=== PATIENT | male | born 1945 | race Caucasian/White ===

== ENCOUNTER 2024-10-09 02:58 | Inpatient (IN) | payer OTHER ==
[2024-10-09] MEDS ORDERED: Promethazine HCl 25 MG/ML VIAL IM PRN (05:16)
[2024-10-09] MEDS ORDERED: Ondansetron PF 4 MG/2 ML Vial IVP PRN (05:16)
[2024-10-09] MEDS ORDERED: Ipratropium/Albuterol 3 ML NEB NEB PRN (05:16)
[2024-10-09 05:32] VITALS: BMI 19.1
[2024-10-09] MEDS: Sodium Chloride 0.9% 1,000 ML IV SCH ×2 (06:10→16:37)
[2024-10-09] MEDS: Morphine 4 MG/ML VIAL SLOW IVP PRN (06:29)
[2024-10-09] MEDS: fentaNYL 50 mcg/mL 1 mL Vial SLOW IVP SCH (06:32)
[2024-10-09] MEDS: Morphine 2 MG/ML VIAL SLOW IVP PRN (09:19)
[2024-10-09 09:25] LABS: #Basophils 0.05 10x3/uL (0.0-0.2); #Eosinophils Less than 0.03 10x3/uL (0.0-0.7); %Basophils 0.4 % (0.0-1.0); %Eosinophils 0.2 % (0.0-10.0); %Lymphocytes 5.6 % (21.0-51.0); %Monocytes 16.9 % (0.0-10.0); %Neutrophils 76.4 % (42.0-75.0); Hematocrit 37.5 % (42.0-52.0); Hemoglobin 12.2 g/dL (14.0-18.0); Mean Corpuscular HGB CONC 32.5 g/dL (32.0-36.0); Mean Corpuscular Hemoglobin 27.8 pg (27.0-31.0); Mean Corpuscular Volume 85.4 fL (78.0-98.0); Mean Platelet Volume 8.3 fL (7.4-10.4); Platelet Count 324 10x3/uL (130-400); Red Blood Cell (RBC) Count 4.39 mill/uL (4.70-6.10)
[2024-10-09 09:40] LABS: INR-International Normal Ratio 0.9; Prothrombin Time 12.4 sec (12.0-14.7)
[2024-10-09 09:41] LABS: PTT 32.6 sec (22.9-36.1)
[2024-10-09 09:50] LABS: ALT (SGPT) 14 U/L (8-55); AST (SGOT) 21 U/L (5-34); Albumin 3.3 g/dL (3.4-4.8); Alkaline Phosphatase 123 U/L (40-110); Anion Gap 14 mmol/L (10-20); BUN (Urea Nitrogen) 21 mg/dL (8.4-25.7); Bilirubin, Direct 0.3 mg/dL (0.1-0.3); Bilirubin, Total 0.7 mg/dL (0.2-1.2); Calc. Creatinine Clearance 40 mL/min (70-130); Calcium 8.8 mg/dL (7.8-10.44); Carbon Dioxide 23 mmol/L (23-31); Chloride 96 mmol/L (98-107); Estimated GFR 68; Globulin 3.8 g/dL (2.4-3.5); Glucose 109 mg/dL (83-110); Potassium 4.8 mmol/L (3.5-5.1); Protein, Total 7.1 g/dL (5.8-8.1); Sodium 128 mmol/L (136-145)
[2024-10-09 11:51] LABS: Actual Bicarbonate (HCO3v) 26.8 mEq/L (22-28); Base Excess 1.1 mEq/L (-2.0 to +3.0); Calcium, Ionized (venous) 1.08 mmol/L (1.16-1.32); Chloride (VBG) 96 mmol/L (98-106); Hematocrit-VBG 37 % (42.0-52.0); Hemoglobin (Hb) 12.7 g/dL (12.6-17.4); Potassium (VBG) 4.71 mmol/L (3.70-5.30); Sodium 131 mmol/L (133-146); pH (venous) 7.377 (7.32-7.43)
[2024-10-09 12:21] LABS: Lactic Acid 1.04 mmol/L (0.5-2.2)
[2024-10-09] MEDS ORDERED: Calcium Chloride 13.6 MEQ in Sodium Chloride 0.9% 100 ML IVPB SCH (13:00)
[2024-10-09 14:19] LABS: Bacteria/HPF None Seen HPF (None Seen); Bilirubin Negative (Negative); Blood, Urine 1+ (Negative); CAUTI Indications for Culture Alt mental st,lethar; Clarity Clear (Clear); Glucose, Urine (Dipstick) Normal (Negative); Ketone, Urine 10 mg/dL (Negative); Leukocyte Negative Leu/uL (Negative); Nitrite Negative (Negative); Protein, Urine (Dipstick) 20 mg/dL (Neg-Trace); Squamous Epithelial 0-3 HPF (0-3); Urobilinogen Normal mg/dL (Less than 2); WBC/HPF 0-3 HPF (0-3); pH, Urine 5.5 (5.0-9.0)
[2024-10-09 14:21] LABS: Specific Gravity, Urine 1.058 (1.002-1.036)
[2024-10-09 14:22] LABS: Urine Culture Reflex No No
[2024-10-09 14:35] LABS: Anion Gap 18 mmol/L (10-20); BUN (Urea Nitrogen) 20 mg/dL (8.4-25.7); Calc. Creatinine Clearance 46 mL/min (70-130); Calcium 8.6 mg/dL (7.8-10.44); Carbon Dioxide 17 mmol/L (23-31); Chloride 99 mmol/L (98-107); Estimated GFR 81; Glucose 78 mg/dL (83-110); Potassium 4.6 mmol/L (3.5-5.1); Sodium 129 mmol/L (136-145)
[2024-10-09] MEDS ORDERED: Sterile Water 10 ML VIAL FS PRN (15:00)
[2024-10-09] MEDS: FLU (Fluad Triv) TS24-25 (65UP)/MF59C/PF 45 MCG/0.5 ML Syringe IM ONE (15:11)
[2024-10-09] MEDS: Azithromycin 500 MG in Sodium Chloride 0.9% 250 ML 250 ML IVPB SCH (15:44)
[2024-10-09] MEDS: Morphine 2 MG/ML VIAL SLOW IVP SCH (15:48)
[2024-10-09] MEDS: cefTRIAXone\\ROCEPHIN 1 GM in Sodium Chloride 0.9% 100 ML IVPB SCH (15:58)
[2024-10-09] MEDS: OLANZapine 10 MG VIAL IM SCH (16:31)
[2024-10-10 04:56] LABS: #Basophils 0.05 10x3/uL (0.0-0.2); #Eosinophils Less than 0.03 10x3/uL (0.0-0.7); %Basophils 0.4 % (0.0-1.0); %Eosinophils 0.1 % (0.0-10.0); %Lymphocytes 6.3 % (21.0-51.0); %Monocytes 19.9 % (0.0-10.0); %Neutrophils 72.9 % (42.0-75.0); Hematocrit 36.6 % (42.0-52.0); Hemoglobin 11.8 g/dL (14.0-18.0); Mean Corpuscular HGB CONC 32.2 g/dL (32.0-36.0); Mean Corpuscular Hemoglobin 27.8 pg (27.0-31.0); Mean Corpuscular Volume 86.1 fL (78.0-98.0); Mean Platelet Volume 8.3 fL (7.4-10.4); Platelet Count 296 10x3/uL (130-400); Red Blood Cell (RBC) Count 4.25 mill/uL (4.70-6.10)
[2024-10-10 05:15] LABS: Anion Gap 17 mmol/L (10-20); BUN (Urea Nitrogen) 13 mg/dL (8.4-25.7); Calc. Creatinine Clearance 57 mL/min (70-130); Calcium 8.6 mg/dL (7.8-10.44); Carbon Dioxide 19 mmol/L (23-31); Chloride 93 mmol/L (98-107); Estimated GFR 91; Glucose 82 mg/dL (83-110); Magnesium 1.9 mg/dL (1.6-2.6); Phosphorus 2.9 mg/dL (2.3-4.7); Potassium 4.4 mmol/L (3.5-5.1); Sodium 125 mmol/L (136-145)
[2024-10-10] MEDS ORDERED: Acetaminophen 325 MG TAB PO PRN (05:26)
[2024-10-10] MEDS: Albumin 25% 25 GM (100 mL) BOT IVPB SCH (13:49)
[2024-10-10 16:56] VITALS: BMI 19.1
[2024-10-10 19:43] LABS: Potassium 3.7 mmol/L (3.5-5.1); Sodium 125 mmol/L (136-145)
[2024-10-11] MEDS ORDERED: Iopamidol-370 76% 500 ML MDV (1 ML CHARGE) ONE (08:46)
[2024-10-11 09:21] LABS: #Basophils 0.03 10x3/uL (0.0-0.2); #Eosinophils Less than 0.03 10x3/uL (0.0-0.7); %Basophils 0.2 % (0.0-1.0); %Monocytes 11.2 % (0.0-10.0); Hematocrit 36.3 % (42.0-52.0); Hemoglobin 12.2 g/dL (14.0-18.0); Mean Corpuscular HGB CONC 33.6 g/dL (32.0-36.0); Mean Corpuscular Hemoglobin 27.7 pg (27.0-31.0); Mean Corpuscular Volume 82.3 fL (78.0-98.0); Mean Platelet Volume 8.7 fL (7.4-10.4); Platelet Count 325 10x3/uL (130-400); RBC Distribution Width 16.3 % (11.5-14.5); Red Blood Cell (RBC) Count 4.41 mill/uL (4.70-6.10)
[2024-10-11 09:42] LABS: Anion Gap 22 mmol/L (10-20); BUN (Urea Nitrogen) 10 mg/dL (8.4-25.7); Calc. Creatinine Clearance 60 mL/min (70-130); Calcium 9.3 mg/dL (7.8-10.44); Carbon Dioxide 15 mmol/L (23-31); Chloride 88 mmol/L (98-107); Estimated GFR 93; Glucose 95 mg/dL (83-110); Potassium 3.4 mmol/L (3.5-5.1); Sodium 122 mmol/L (136-145)
[2024-10-11] MEDS: Tolvaptan 15 MG TAB PO SCH (12:33)
[2024-10-11] MEDS: Acetaminophen 650 MG Suppository PR PRN (12:57)
[2024-10-11 16:22] LABS: Bilirubin Negative (Negative); Blood, Urine 3+ (Negative); CAUTI Indications for Culture Alt mental st,lethar; Clarity Clear (Clear); Glucose, Urine (Dipstick) Normal (Negative); Ketone, Urine 100 mg/dL (Negative); Leukocyte 75 Leu/uL (Negative); Nitrite Negative (Negative); Protein, Urine (Dipstick) 100 mg/dL (Neg-Trace); RBC/HPF 0-3 HPF (0-3); Squamous Epithelial 0-3 HPF (0-3)
[2024-10-11 16:23] LABS: Bacteria/HPF 1+ HPF (None Seen)
[2024-10-11 16:24] LABS: Urine Culture Reflex No No
[2024-10-11] MEDS: metroNIDAZOLE 500 MG in Premix 1 BAG IVPB SCH (16:57)
[2024-10-11 18:39] LABS: Anion Gap 19 mmol/L (10-20); BUN (Urea Nitrogen) 10 mg/dL (8.4-25.7); Calc. Creatinine Clearance 56 mL/min (70-130); Calcium 8.7 mg/dL (7.8-10.44); Carbon Dioxide 11 mmol/L (23-31); Chloride 92 mmol/L (98-107); Estimated GFR 91; Glucose 88 mg/dL (83-110); Sodium 118 mmol/L (136-145)
[2024-10-11] MEDS: Sodium Bicarbonate 150 MEQ in Dextrose 5% in Water 1,000 ML IV SCH (20:52)
[2024-10-11] MEDS ORDERED: Vancomycin 1 GM in Premix 1 BAG IVPB SCH (21:00)
[2024-10-11] MEDS: Vancomycin HCl 750 MG in Sodium Chloride 0.9% 250 ML 250 ML IVPB SCH (21:07)
[2024-10-11] MEDS: Cefepime 1 GM in Sodium Chloride 0.9% 100 ML IVPB SCH (21:13)
[2024-10-11 21:26] LABS: Anion Gap 19 mmol/L (10-20); BUN (Urea Nitrogen) 12 mg/dL (8.4-25.7); Calc. Creatinine Clearance 58 mL/min (70-130); Calcium 8.7 mg/dL (7.8-10.44); Carbon Dioxide 14 mmol/L (23-31); Chloride 91 mmol/L (98-107); Estimated GFR 91; Glucose 90 mg/dL (83-110); Potassium 4.1 mmol/L (3.5-5.1); Sodium 120 mmol/L (136-145)
[2024-10-11] MEDS: Vancomycin HCl 750 MG VIAL ONE (22:26)
[2024-10-12] MEDS: Labetalol HCl 100 MG/20 ML VIAL SLOW IVP PRN (00:07)
[2024-10-12 03:58] LABS: #Basophils Less than 0.03 10x3/uL (0.0-0.2); #Eosinophils Less than 0.03 10x3/uL (0.0-0.7); %Basophils 0.2 % (0.0-1.0); %Eosinophils 0.1 % (0.0-10.0); %Lymphocytes 3.2 % (21.0-51.0); %Monocytes 10.4 % (0.0-10.0); %Neutrophils 85.7 % (42.0-75.0); Hematocrit 36.6 % (42.0-52.0); Hemoglobin 12.5 g/dL (14.0-18.0); Mean Corpuscular HGB CONC 34.2 g/dL (32.0-36.0); Mean Corpuscular Hemoglobin 27.5 pg (27.0-31.0); Mean Corpuscular Volume 80.6 fL (78.0-98.0); Mean Platelet Volume 8.3 fL (7.4-10.4); Platelet Count 306 10x3/uL (130-400); RBC Distribution Width 16.1 % (11.5-14.5); Red Blood Cell (RBC) Count 4.54 mill/uL (4.70-6.10)
[2024-10-12 04:20] LABS: Anion Gap 16 mmol/L (10-20); BUN (Urea Nitrogen) 12 mg/dL (8.4-25.7); Calc. Creatinine Clearance 59 mL/min (70-130); Calcium 8.6 mg/dL (7.8-10.44); Carbon Dioxide 19 mmol/L (23-31); Chloride 90 mmol/L (98-107); Estimated GFR 92; Glucose 114 mg/dL (83-110); Potassium 3.1 mmol/L (3.5-5.1); Sodium 122 mmol/L (136-145)
[2024-10-12 05:21] LABS: Vancomycin, Random 7.4 ug/mL (See Comment)
[2024-10-12] MEDS: Potassium Chloride 20 MEQ (100 mL) BAG IVPB SCH (08:42)
[2024-10-12] MEDS: Pantoprazole 40 MG VIAL IVP SCH (08:43)
[2024-10-12] MEDS: Metoprolol Tartrate 5 MG (5 mL) VIAL IVP SCH (08:43)
[2024-10-12] MEDS: Sodium Bicarbonate 150 MEQ in Dextrose 5% in Water 1,000 ML IV SCH (09:38)
[2024-10-12 09:41] LABS: Anion Gap 15 mmol/L (10-20); BUN (Urea Nitrogen) 12 mg/dL (8.4-25.7); Calc. Creatinine Clearance 56 mL/min (70-130); Calcium 8.8 mg/dL (7.8-10.44); Carbon Dioxide 24 mmol/L (23-31); Chloride 88 mmol/L (98-107); Estimated GFR 90; Glucose 109 mg/dL (83-110); Potassium 2.9 mmol/L (3.5-5.1); Sodium 124 mmol/L (136-145)
[2024-10-12] MEDS: Sodium Chloride 0.9% 1,000 ML IV SCH (11:29)
[2024-10-12 14:27] LABS: HIV (1/2) Antibody/Antigen NONREACTIVE (NonReactive); HIV 1/2 INDEX 0.04 S/CO (<1.00)
[2024-10-12] MEDS: Labetalol HCl 100 MG/20 ML VIAL SLOW IVP SCH (16:07)
[2024-10-13 00:55] LABS: #Basophils 0.03 10x3/uL (0.0-0.2); #Eosinophils Less than 0.03 10x3/uL (0.0-0.7); %Basophils 0.2 % (0.0-1.0); %Eosinophils 0.1 % (0.0-10.0); %Lymphocytes 2.4 % (21.0-51.0); %Monocytes 11.4 % (0.0-10.0); %Neutrophils 85.1 % (42.0-75.0); Hematocrit 36.5 % (42.0-52.0); Hemoglobin 12.3 g/dL (14.0-18.0); Mean Corpuscular HGB CONC 33.7 g/dL (32.0-36.0); Mean Corpuscular Hemoglobin 27.5 pg (27.0-31.0); Mean Corpuscular Volume 81.7 fL (78.0-98.0); Mean Platelet Volume 8.4 fL (7.4-10.4); Platelet Count 431 10x3/uL (130-400); RBC Distribution Width 15.8 % (11.5-14.5); Red Blood Cell (RBC) Count 4.47 mill/uL (4.70-6.10)
[2024-10-13 01:16] LABS: Anion Gap 18 mmol/L (10-20); BUN (Urea Nitrogen) 10 mg/dL (8.4-25.7); Calc. Creatinine Clearance 61 mL/min (70-130); Carbon Dioxide 17 mmol/L (23-31); Chloride 91 mmol/L (98-107); Sodium 122 mmol/L (136-145)
[2024-10-13 01:17] LABS: Calcium 8.6 mg/dL (7.8-10.44); Estimated GFR 93; Glucose 133 mg/dL (83-110)
[2024-10-13] MEDS: Melatonin 3 MG TAB PO SCH (04:22)
[2024-10-13 04:58] LABS: #Basophils Less than 0.03 10x3/uL (0.0-0.2); #Eosinophils Less than 0.03 10x3/uL (0.0-0.7); %Basophils 0.1 % (0.0-1.0); %Monocytes 11.4 % (0.0-10.0); %Neutrophils 85.7 % (42.0-75.0); Hematocrit 37.1 % (42.0-52.0); Hemoglobin 12.7 g/dL (14.0-18.0); Mean Corpuscular HGB CONC 34.2 g/dL (32.0-36.0); Mean Corpuscular Hemoglobin 27.9 pg (27.0-31.0); Mean Corpuscular Volume 81.4 fL (78.0-98.0); Mean Platelet Volume 8.9 fL (7.4-10.4); Platelet Count 448 10x3/uL (130-400); RBC Distribution Width 15.9 % (11.5-14.5); Red Blood Cell (RBC) Count 4.56 mill/uL (4.70-6.10)
[2024-10-13 05:09] LABS: Anion Gap 20 mmol/L (10-20); BUN (Urea Nitrogen) 12 mg/dL (8.4-25.7); Calc. Creatinine Clearance 58 mL/min (70-130); Calcium 8.7 mg/dL (7.8-10.44); Carbon Dioxide 15 mmol/L (23-31); Chloride 92 mmol/L (98-107); Estimated GFR 91; Glucose 123 mg/dL (83-110); Potassium 4.1 mmol/L (3.5-5.1); Sodium 123 mmol/L (136-145)
[2024-10-13] MEDS: diphenhydrAMINE 50 MG/ML VIAL IVP SCH (06:05)
[2024-10-13] MEDS: Sodium Bicarbonate 150 MEQ in Dextrose 5% in Water 1,000 ML IV SCH (13:05)
[2024-10-13] MEDS: Vancomycin 1 GM in Premix 1 BAG IVPB SCH (13:59)
[2024-10-14] MEDS ORDERED: metroNIDAZOLE 500 MG (100 mL) BAG ONE ×4 (05:11→22:00)
[2024-10-14] MEDS ORDERED: Pantoprazole 40 MG VIAL ONE ×2 (08:11→09:00)
[2024-10-14] MEDS ORDERED: Potassium Chloride 20 MEQ (100 mL) BAG ONE ×4 (11:00→13:11)
[2024-10-14] MEDS ORDERED: Morphine 2 MG/ML VIAL ONE (21:55)
[2024-10-15] MEDS ORDERED: Morphine 2 MG/ML VIAL ONE ×3 (00:30→14:30)
[2024-10-15] MEDS ORDERED: Pantoprazole DR 40 MG TAB ONE (08:05)
[2024-10-15] MEDS ORDERED: Pantoprazole 40 MG VIAL ONE (08:05)
[2024-10-15] MEDS ORDERED: Cefepime 2 GM VIAL ONE (08:05)
[2024-10-16 04:49] LABS: #Basophils 0.03 10x3/uL (0.0-0.2); #Eosinophils Less than 0.03 10x3/uL (0.0-0.7); %Basophils 0.2 % (0.0-1.0); %Eosinophils 0.1 % (0.0-10.0); %Lymphocytes 1.8 % (21.0-51.0); %Monocytes 11.2 % (0.0-10.0); Hematocrit 39.4 % (42.0-52.0); Hemoglobin 12.6 g/dL (14.0-18.0); Mean Corpuscular Hemoglobin 27.7 pg (27.0-31.0); Mean Corpuscular Volume 86.6 fL (78.0-98.0); Mean Platelet Volume 8.7 fL (7.4-10.4); Platelet Count 347 10x3/uL (130-400); RBC Distribution Width 16.7 % (11.5-14.5); Red Blood Cell (RBC) Count 4.55 mill/uL (4.70-6.10)
[2024-10-16 08:57] LABS: Anion Gap 18 mmol/L (10-20); BUN (Urea Nitrogen) 18 mg/dL (8.4-25.7); Calc. Creatinine Clearance 57 mL/min (70-130); Calcium 8.6 mg/dL (7.8-10.44); Carbon Dioxide 19 mmol/L (23-31); Chloride 99 mmol/L (98-107); Estimated GFR 91; Glucose 79 mg/dL (83-110); Sodium 132 mmol/L (136-145)
[2024-10-17 04:36] LABS: #Basophils 0.06 10x3/uL (0.0-0.2); #Eosinophils Less than 0.03 10x3/uL (0.0-0.7); %Basophils 0.4 % (0.0-1.0); %Eosinophils 0.1 % (0.0-10.0); %Lymphocytes 1.6 % (21.0-51.0); %Monocytes 11.8 % (0.0-10.0); Hematocrit 40.9 % (42.0-52.0); Hemoglobin 12.9 g/dL (14.0-18.0); Mean Corpuscular HGB CONC 31.5 g/dL (32.0-36.0); Mean Corpuscular Hemoglobin 27.5 pg (27.0-31.0); Mean Corpuscular Volume 87.2 fL (78.0-98.0); Mean Platelet Volume 8.9 fL (7.4-10.4); Platelet Count 353 10x3/uL (130-400); RBC Distribution Width 17.2 % (11.5-14.5); Red Blood Cell (RBC) Count 4.69 mill/uL (4.70-6.10)
[2024-10-17 04:51] LABS: Anion Gap 18 mmol/L (10-20); BUN (Urea Nitrogen) 19 mg/dL (8.4-25.7); Calc. Creatinine Clearance 56 mL/min (70-130); Calcium 8.6 mg/dL (7.8-10.44); Carbon Dioxide 19 mmol/L (23-31); Chloride 102 mmol/L (98-107); Estimated GFR 91; Glucose 104 mg/dL (83-110); Sodium 135 mmol/L (136-145)
[2024-10-18 06:16] LABS: Anion Gap 15 mmol/L (10-20); BUN (Urea Nitrogen) 22 mg/dL (8.4-25.7); Calc. Creatinine Clearance 58 mL/min (70-130); Calcium 8.7 mg/dL (7.8-10.44); Carbon Dioxide 24 mmol/L (23-31); Chloride 104 mmol/L (98-107); Estimated GFR 91; Glucose 115 mg/dL (83-110); Sodium 139 mmol/L (136-145)
[2024-10-18] MEDS: Cefepime 2 GM VIAL ONE ×3 (18:24→18:27)
[2024-10-18] MEDS: Sodium Chloride 0.9% 100 ML ONE (18:27)
[2024-10-19 05:43] LABS: Anion Gap 19 mmol/L (10-20); BUN (Urea Nitrogen) 26 mg/dL (8.4-25.7); Calc. Creatinine Clearance 51 mL/min (70-130); Carbon Dioxide 21 mmol/L (23-31); Chloride 106 mmol/L (98-107); Estimated GFR 88; Glucose 116 mg/dL (83-110); Potassium 4.3 mmol/L (3.5-5.1); Sodium 142 mmol/L (136-145)
[2024-10-20] MEDS: Vancomycin 1 GM in Premix 1 BAG IVPB SCH (07:50)
[2024-10-22 20:33] VITALS: BP 91/64; TEMP 100.5
[2024-10-26 12:13] LABS: Anion Gap 14 mmol/L (10-20); BUN (Urea Nitrogen) 18 mg/dL (8.4-25.7); Calc. Creatinine Clearance 54 mL/min (70-130); Calcium 8.1 mg/dL (7.6-10.4); Carbon Dioxide 22 mmol/L (23-31); Chloride 93 mmol/L (98-107); Estimated GFR 89; Glucose 144 mg/dL (83-110); Potassium 3.4 mmol/L (3.5-5.1); Sodium 126 mmol/L (136-145)
[2024-10-26 12:14] LABS: %Eosinophils 0.2 % (0.0-10.0); %Lymphocytes 3.3 % (21.0-51.0); %Monocytes 12.7 % (0.0-10.0); %Neutrophils 82.9 % (42.0-75.0); Hematocrit 34.4 % (42.0-52.0); Hemoglobin 11.7 g/dL (14.0-18.0); Mean Corpuscular Hemoglobin 27.5 pg (27.0-31.0); Mean Corpuscular Volume 80.8 fL (78.0-98.0); Mean Platelet Volume 9.1 fL (7.4-10.4); Platelet Count 364 10x3/uL (130-400); RBC Distribution Width 16.1 % (11.5-14.5); Red Blood Cell (RBC) Count 4.26 mill/uL (4.70-6.10); Vancomycin, Random 31.4 ug/mL (See Comment)
[2024-10-26 12:15] LABS: #Basophils Less than 0.03 10x3/uL (0.0-0.2); #Eosinophils Less than 0.03 10x3/uL (0.0-0.7); %Basophils 0.1 % (0.0-1.0)
== END 2024-10-23 05:39 | disposition expired | DRG 393 ==
LOC: EEVIPCON 04:13 → SURG B 04:13 → IMCU/EMU 10-11 19:55 → PCU 10-13 17:57 → T4-B 10-18 17:39
PROVIDERS: ADMIT Internal Medicine; ATTEND Internal Medicine
DX: K40.20 Bilateral inguinal hernia, without obstruction or gangrene, not specified as recurrent (principal); A41.9 Sepsis, unspecified organism; G93.41 Metabolic encephalopathy; J18.9 Pneumonia, unspecified organism; E87.20 Acidosis, unspecified; E87.1 Hypo-osmolality and hyponatremia; J44.0 Chronic obstructive pulmonary disease with (acute) lower respiratory infection; R64 Cachexia; Z68.1 Body mass index [BMI] 19.9 or less, adult; K56.609 Unspecified intestinal obstruction, unspecified as to partial versus complete obstruction; Z66 Do not resuscitate; M19.90 Unspecified osteoarthritis, unspecified site; Z96.641 Presence of right artificial hip joint; F39 Unspecified mood [affective] disorder; K59.00 Constipation, unspecified; E87.8 Other disorders of electrolyte and fluid balance, not elsewhere classified; Z23 Encounter for immunization; I48.91 Unspecified atrial fibrillation; Z88.8 Allergy status to other drugs, medicaments and biological substances; Z91.014 Allergy to mammalian meats; Z51.5 Encounter for palliative care; D63.8 Anemia in other chronic diseases classified elsewhere; N30.90 Cystitis, unspecified without hematuria; E87.6 Hypokalemia; K40.30 Unilateral inguinal hernia, with obstruction, without gangrene, not specified as recurrent; Z87.891 Personal history of nicotine dependence; Z79.899 Other long term (current) drug therapy
CPT/HCPCS: 36415; 51701; 70450; 71045; 71260; 74018; 74177; 80048; 80053; 80202; 81001; 82140; 82533; 82805; 83605; 83690; 83735; 83880; 83930; 83935; 84100; 84145; 84300; 84443; 85025; 85610; 85730; 86850; 86900; 86901; 87040; 87389; 93005; 93010; 93306; 96374; 96375; J0456; J0692; J0696; J2272; J2405; J2470; J3010; J3370; J3370-JW; J3480; J7030; J7050; J7070; P9047; Q9967